=== PATIENT | male | born 1955 | race Caucasian/White ===

== ENCOUNTER 2023-10-08 14:36 | Outpatient (CLI) | payer BC, MEDICARE | END 2023-10-08 14:37 | disposition home or self-care (01) | LOC: CSHRAD 14:36 | PROVIDERS: ATTEND Internal Medicine | DX: Z01.818 Encounter for other preprocedural examination (principal); C93.10 Chronic myelomonocytic leukemia not having achieved remission; D46.Z Other myelodysplastic syndromes; D46.22 Refractory anemia with excess of blasts 2 | CPT/HCPCS: 93005; 93010 ==